=== PATIENT | male | born 1980 | race Hispanic/Latino ===

== ENCOUNTER 2023-12-17 08:36 | Inpatient (IN) | payer OTHER ==
[~2023-12-17] VITALS: Ht 160 cm; Wt 79.8 kg
[2023-12-17] MEDS ORDERED: IPRATROPIUM/ALBUTEROL SULFATE 3 ML SOLUTION IH PRN (09:00)
[2023-12-17] MEDS ORDERED: CLONIDINE HCL 0.1 MG TABLET PO PRN (09:00)
[2023-12-17] MEDS ORDERED: POTASSIUM CHLORIDE 20MEQ/100ML 100 ML IV PRN (09:00)
[2023-12-17] MEDS ORDERED: NITROGLYCERIN 0.4 MG SL TAB SL PRN ×2 (09:00→11:30)
[2023-12-17] MEDS ORDERED: DiphenhydrAMINE HCL 25 MG/10 ML ELIXIR UDCUP PO PRN (09:00)
[2023-12-17] MEDS ORDERED: ACETAMINOPHEN 325 MG TAB PO PRN ×4 (09:00→11:30)
[2023-12-17 09:28] LABS: BASOPHILS # (AUTO) 0.05 K/uL (0.00-0.20); BASOPHILS % (AUTO) 0.6 % (0.0-5.0); EOSINOPHILS % (AUTO) 1.2 % (0.0-8.0); HEMATOCRIT 41.8 % (42-54); IMMATURE GRANULOCYTE ABSOLUTE 0.03 K/uL (0-1); LYMPHOCYTES # (AUTO) 2.6 K/uL (1.0-4.8); MEAN CORPUSCULAR HEMOGLOBIN 29.3 pg (27.0-33.0); MEAN CORPUSCULAR HGB CONC 34.4 g/dL (32.0-36.0); MONOCYTES # (AUTO) 0.6 K/uL (0.1-1.0); MONOCYTES % (AUTO) 7.4 % (3.0-13.0); NEUTROPHILS # (AUTO) 4.7 K/uL (1.8-7.7); NEUTROPHILS % (AUTO) 58.4 % (40.0-77.0); PLATELET COUNT (AUTO) 205 K/uL (130-400); RED BLOOD CELL COUNT(AUTO) 4.92 MIL/uL (4.50-6.20); RED CELL DISTRIBUTION WIDTH 11.9 % (11.0-15.5); WHITE BLOOD COUNT (AUTO) 8.1 K/uL (4.8-10.8)
[2023-12-17 09:41] LABS: ALBUMIN 3.3 g/dL (3.5-5.0); BILIRUBIN,TOTAL 0.3 mg/dL (0.2-1.0); CREATININE 0.8 mg/dL (0.5-1.3); POTASSIUM 4.3 mmol/L (3.5-5.1)
[2023-12-17] MEDS: METOPROLOL SUCCINATE 25 MG TAB.SR.24H PO SCH (09:47)
[2023-12-17] MEDS: ASPIRIN 81 MG EC TAB PO SCH (09:47)
[2023-12-17] MEDS: LISINOPRIL 20 MG TABLET PO SCH (09:47)
[2023-12-17] MEDS: CLOPIDOGREL 75MG TAB PO SCH (09:47)
[2023-12-17] MEDS: TICAGRELOR 90 MG TABLET PO SCH ×2 (10:07→19:57)
[2023-12-17] MEDS: HEPARIN 5,000 UNIT VIAL IV PRN (10:18)
[2023-12-17] MEDS: HEPARIN 25,000 UNITS/250ML D5W 250 ML IV SCH (10:20)
[2023-12-17] MEDS ORDERED: LACTULOSE 20 GM/30 ML UDCUP PO PRN (11:30)
[2023-12-17] MEDS ORDERED: ONDANSETRON 4MG INJ IV PRN (11:30)
[2023-12-17] MEDS ORDERED: DIPHENHYDRAMINE HCL 25 MG CAPSULE PO PRN (11:30)
[2023-12-17] MEDS ORDERED: DEXTROSE 50%-WATER 50 ML DISP.SYRIN IV PRN (11:30)
[2023-12-17] MEDS ORDERED: GUAIFENESIN-DM 200/20 MG 10 ML PO PRN (11:30)
[2023-12-17] MEDS ORDERED: HYDRALAZINE 20MG/ML VIAL IV PRN (11:30)
[2023-12-17] MEDS ORDERED: ZOLPIDEM TARTRATE 5 MG TAB PO PRN (11:30)
[2023-12-17] MEDS ORDERED: GLUCAGON 1MG KIT 1 MG ML IM PRN (11:30)
[2023-12-17] MEDS ORDERED: KETOROLAC 15MG/ML VIAL (15MG/ML) IV PRN (11:30)
[2023-12-17] MEDS ORDERED: FAMOTIDINE 20MG VIAL IV PRN (11:30)
[2023-12-17] MEDS ORDERED: MAG/ALUM/SIMETH 30 ML UDCUP PO PRN (11:30)
[2023-12-17] MEDS ORDERED: POTASSIUM CHLORIDE 10% ELIXIR 20 MEQ/15 ML UDCUP PO PRN (11:30)
[2023-12-17] MEDS: INSULIN HUMULIN R 100 UNIT/ML 3ML SQ SCH (12:51)
[2023-12-17] MEDS ORDERED: NITROGLYCERIN 1GM OINT 1 INCH/1GM TD PRN (14:30)
[2023-12-17 14:44] LABS: APPEARANCE,URINE CLEAR (CLEAR); BILIRUBIN,URINE NEGATIVE (NEGATIVE); COLOR,URINE LIGHT-YELLOW (YELLOW); GLUCOSE, URINE (UA) >=1000 mg/dL (NEGATIVE); KETONES,URINE 5 mg/dL (NEGATIVE); LEUKOCYTE ESTERASE ,URINE NEGATIVE Leu/uL (NEGATIVE); NITRATE,URINE NEGATIVE (NEGATIVE); OCCULT BLOOD,URINE MODERATE (NEGATIVE); PH,URINE 5.5 (5.0-8.0); PROTEIN,URINE 100 mg/dL (NEGATIVE); UROBILINOGEN,URINE 0.2 mg/dL (0.2-1.0); WBC,URINE 0-1 /HPF (0-1)
[2023-12-17 16:40] LABS: INR <= 0.93 (0.85-1.15); PROTHROMBIN TIME 10.6 SEC (9.6-11.6)
[2023-12-17 16:41] LABS: PARTIAL THROMBOPLASTIN TIME 41.4 SEC (26.3-35.5)
[2023-12-17 18:27] VITALS: BP 144/71; PULSE 72; RESP 16
[2023-12-17 18:33] VITALS: O2SAT 98
[2023-12-17 18:53] VITALS: PULSE 74; RESP 17; O2SAT 100
[2023-12-17] MEDS ORDERED: ASPI-1443 PO (19:57)
[2023-12-17] MEDS ORDERED: CLOP75TA32 PO (19:57)
[2023-12-17] MEDS: FAMOTIDINE 20MG VIAL IV SCH (19:57)
[2023-12-17] MEDS ORDERED: ATOR-2 PO (19:57)
[2023-12-17] MEDS ORDERED: LOSA50TA64 PO (19:57)
[2023-12-17] MEDS ORDERED: METO-408 PO (19:57)
[2023-12-17] MEDS: ATORVASTATIN 40 MG TABLET PO SCH (19:58)
[2023-12-17 20:08] VITALS: BP 93/64; PULSE 75; RESP 20
[2023-12-17 22:00] VITALS: O2SAT 99
[2023-12-17 23:35] VITALS: BP 108/64; PULSE 68; RESP 20
[2023-12-18] VITALS (14 sets, daily range): BP systolic 106–126; BP diastolic 61–83; PULSE 61–91; RESP 2–20; O2SAT 96–99
[2023-12-18 03:58] LABS: BASOPHILS # (AUTO) 0.08 K/uL (0.00-0.20); BASOPHILS % (AUTO) 0.9 % (0.0-5.0); EOSINOPHILS # (AUTO) 0.21 K/uL (0.00-0.70); EOSINOPHILS % (AUTO) 2.3 % (0.0-8.0); HEMATOCRIT 38.2 % (42-54); IMMATURE GRANULOCYTE ABSOLUTE 0.03 K/uL (0-1); LYMPHOCYTES # (AUTO) 3.7 K/uL (1.0-4.8); MEAN CORPUSCULAR HEMOGLOBIN 29.6 pg (27.0-33.0); MEAN CORPUSCULAR HGB CONC 34.6 g/dL (32.0-36.0); MEAN CORPUSCULAR VOLUME 85.7 fL (79-99); MONOCYTES # (AUTO) 0.6 K/uL (0.1-1.0); MONOCYTES % (AUTO) 6.9 % (3.0-13.0); NEUTROPHILS # (AUTO) 4.3 K/uL (1.8-7.7); NEUTROPHILS % (AUTO) 48.6 % (40.0-77.0); PLATELET COUNT (AUTO) 183 K/uL (130-400); RED BLOOD CELL COUNT(AUTO) 4.46 MIL/uL (4.50-6.20); RED CELL DISTRIBUTION WIDTH 11.9 % (11.0-15.5)
[2023-12-18 04:13] LABS: INR <= 0.93 (0.85-1.15); PROTHROMBIN TIME 10.9 SEC (9.6-11.6)
[2023-12-18 04:14] LABS: PARTIAL THROMBOPLASTIN TIME 77.3 SEC (26.3-35.5)
[2023-12-18 04:19] LABS: ALBUMIN 2.7 g/dL (3.5-5.0); BILIRUBIN,DIRECT 0.1 mg/dL (0.0-0.3); BILIRUBIN,TOTAL 0.3 mg/dL (0.2-1.0); CREATININE 0.9 mg/dL (0.5-1.3); POTASSIUM 3.5 mmol/L (3.5-5.1); TOTAL PROTEIN, SERUM 5.8 g/dL (6.0-8.3)
[2023-12-18 08:07] LABS: AMPHET/METH SCREEN,URINE NEGATIVE (NEGATIVE); BARBITURATE SCREEN, URINE NEGATIVE (NEGATIVE); BENZODIAZEPINES SCREEN,URINE NEGATIVE (NEGATIVE); CANNABINOID SCREEN,URINE NEGATIVE (NEGATIVE); COCAINE SCREEN,URINE NEGATIVE (NEGATIVE); OPIATE SCREEN,URINE NEGATIVE (NEGATIVE); PHENCYCLIDINE SCREEN,URINE NEGATIVE (NEGATIVE)
[2023-12-18] MEDS: POTASSIUM CHLORIDE 10MEQ/100ML 100 ML IV PRN (08:25)
[2023-12-18] MEDS ORDERED: BIVALIRUDIN 250 MG/VIAL IV ONE (14:08)
[2023-12-18] MEDS ORDERED: LIDOCAINE HCL 400MG/20ML VIAL ONE (14:08)
[2023-12-18] MEDS ORDERED: NITROGLYCERIN 50MG VIAL ONE (14:09)
[2023-12-18] MEDS ORDERED: FENTANYL CITRATE PF 50 MCG/1 ML 2ML VIAL ONE (14:09)
[2023-12-18] MEDS ORDERED: MIDAZOLAM HCL 1 MG/ML 2ML VIAL ONE (14:09)
[2023-12-18] MEDS ORDERED: IOHEXOL-350 75 ML VIAL IV ONE (14:11)
[2023-12-18] MEDS ORDERED: SODIUM BICARB 50MEQ 50ML VIAL 50 ML ONE (14:17)
[2023-12-18] MEDS: FUROSEMIDE 20MG VIAL IV ONE (16:13)
[2023-12-18 20:40] LABS: BASOPHILS # (AUTO) 0.07 K/uL (0.00-0.20); BASOPHILS % (AUTO) 0.7 % (0.0-5.0); EOSINOPHILS # (AUTO) 0.15 K/uL (0.00-0.70); EOSINOPHILS % (AUTO) 1.6 % (0.0-8.0); HEMATOCRIT 40.8 % (42-54); IMMATURE GRANULOCYTE ABSOLUTE 0.03 K/uL (0-1); LYMPHOCYTES # (AUTO) 3.1 K/uL (1.0-4.8); LYMPHOCYTES % (AUTO) 31.8 % (21.0-51.0); MEAN CORPUSCULAR HEMOGLOBIN 29.7 pg (27.0-33.0); MEAN CORPUSCULAR HGB CONC 33.6 g/dL (32.0-36.0); MEAN CORPUSCULAR VOLUME 88.5 fL (79-99); MONOCYTES # (AUTO) 0.8 K/uL (0.1-1.0); MONOCYTES % (AUTO) 7.8 % (3.0-13.0); NEUTROPHILS # (AUTO) 5.6 K/uL (1.8-7.7); NEUTROPHILS % (AUTO) 57.8 % (40.0-77.0); PLATELET COUNT (AUTO) 204 K/uL (130-400); RED BLOOD CELL COUNT(AUTO) 4.61 MIL/uL (4.50-6.20); WHITE BLOOD COUNT (AUTO) 9.7 K/uL (4.8-10.8)
[2023-12-18] MEDS: HEPARIN 25,000 UNITS/250ML D5W 250 ML IV SCH (21:35)
[2023-12-19] VITALS (11 sets, daily range): BP systolic 96–137; BP diastolic 52–87; PULSE 64–80; RESP 18–21; O2SAT 98–99
[2023-12-19 04:01] LABS: BASOPHILS # (AUTO) 0.07 K/uL (0.00-0.20); BASOPHILS % (AUTO) 0.8 % (0.0-5.0); EOSINOPHILS # (AUTO) 0.15 K/uL (0.00-0.70); EOSINOPHILS % (AUTO) 1.7 % (0.0-8.0); IMMATURE GRANULOCYTE ABSOLUTE 0.03 K/uL (0-1); LYMPHOCYTES # (AUTO) 3.5 K/uL (1.0-4.8); LYMPHOCYTES % (AUTO) 39.5 % (21.0-51.0); MEAN CORPUSCULAR HEMOGLOBIN 29.2 pg (27.0-33.0); MEAN CORPUSCULAR HGB CONC 34.2 g/dL (32.0-36.0); MEAN CORPUSCULAR VOLUME 85.4 fL (79-99); MONOCYTES # (AUTO) 0.5 K/uL (0.1-1.0); MONOCYTES % (AUTO) 6.1 % (3.0-13.0); NEUTROPHILS # (AUTO) 4.6 K/uL (1.8-7.7); NEUTROPHILS % (AUTO) 51.6 % (40.0-77.0); PLATELET COUNT (AUTO) 198 K/uL (130-400); RED BLOOD CELL COUNT(AUTO) 4.45 MIL/uL (4.50-6.20); RED CELL DISTRIBUTION WIDTH 11.9 % (11.0-15.5); WHITE BLOOD COUNT (AUTO) 8.8 K/uL (4.8-10.8)
[2023-12-19 04:22] LABS: ALBUMIN 2.6 g/dL (3.5-5.0); BILIRUBIN,TOTAL 0.2 mg/dL (0.2-1.0); MAGNESIUM 1.8 mg/dL (1.80-2.40); TOTAL PROTEIN, SERUM 5.8 g/dL (6.0-8.3)
[2023-12-19] MEDS: MAGNESIUM 2GM PREMIX 50ML 50 ML IV PRN (09:00)
[2023-12-19] MEDS: ACETAMINOPHEN 325 MG TAB PO PRN (09:03)
[2023-12-20] VITALS (9 sets, daily range): BP systolic 103–144; BP diastolic 59–87; PULSE 56–74; RESP 18–21; O2SAT 98–99
[2023-12-20 06:33] LABS: BASOPHILS # (AUTO) 0.05 K/uL (0.00-0.20); BASOPHILS % (AUTO) 0.7 % (0.0-5.0); EOSINOPHILS # (AUTO) 0.12 K/uL (0.00-0.70); EOSINOPHILS % (AUTO) 1.6 % (0.0-8.0); HEMATOCRIT 36.8 % (42-54); IMMATURE GRANULOCYTE ABSOLUTE 0.02 K/uL (0-1); LYMPHOCYTES # (AUTO) 2.8 K/uL (1.0-4.8); LYMPHOCYTES % (AUTO) 38.2 % (21.0-51.0); MEAN CORPUSCULAR HEMOGLOBIN 29.5 pg (27.0-33.0); MEAN CORPUSCULAR HGB CONC 34.8 g/dL (32.0-36.0); MEAN CORPUSCULAR VOLUME 84.8 fL (79-99); MONOCYTES # (AUTO) 0.4 K/uL (0.1-1.0); NEUTROPHILS # (AUTO) 3.9 K/uL (1.8-7.7); NEUTROPHILS % (AUTO) 53.2 % (40.0-77.0); PLATELET COUNT (AUTO) 181 K/uL (130-400); RED BLOOD CELL COUNT(AUTO) 4.34 MIL/uL (4.50-6.20); WHITE BLOOD COUNT (AUTO) 7.4 K/uL (4.8-10.8)
[2023-12-20 06:44] LABS: INR <= 0.93 (0.85-1.15)
[2023-12-20 06:45] LABS: PARTIAL THROMBOPLASTIN TIME 56.8 SEC (26.3-35.5)
[2023-12-20 07:20] LABS: ALBUMIN 2.7 g/dL (3.5-5.0); BILIRUBIN,TOTAL 0.2 mg/dL (0.2-1.0); CREATININE 0.8 mg/dL (0.5-1.3); MAGNESIUM 1.7 mg/dL (1.80-2.40); POTASSIUM 4.1 mmol/L (3.5-5.1); TOTAL PROTEIN, SERUM 5.8 g/dL (6.0-8.3)
[2023-12-20] MEDS: MAGNESIUM 2GM PREMIX 50ML 50 ML IV SCH (10:27)
[2023-12-20] MEDS: FUROSEMIDE 20MG VIAL IV ONE (14:38)
[2023-12-20] MEDS: FUROSEMIDE 20MG VIAL IV SCH (20:33)
[2023-12-21] VITALS (8 sets, daily range): BP systolic 113–131; BP diastolic 71–82; PULSE 62–72; RESP 17–20; O2SAT 98–99
[2023-12-21 06:35] LABS: BASOPHILS # (AUTO) 0.05 K/uL (0.00-0.20); BASOPHILS % (AUTO) 0.6 % (0.0-5.0); EOSINOPHILS # (AUTO) 0.18 K/uL (0.00-0.70); EOSINOPHILS % (AUTO) 2.3 % (0.0-8.0); HEMATOCRIT 39.8 % (42-54); IMMATURE GRANULOCYTE ABSOLUTE 0.05 K/uL (0-1); LYMPHOCYTES # (AUTO) 2.8 K/uL (1.0-4.8); LYMPHOCYTES % (AUTO) 36.5 % (21.0-51.0); MEAN CORPUSCULAR HEMOGLOBIN 29.4 pg (27.0-33.0); MEAN CORPUSCULAR HGB CONC 34.4 g/dL (32.0-36.0); MEAN CORPUSCULAR VOLUME 85.4 fL (79-99); MONOCYTES # (AUTO) 0.5 K/uL (0.1-1.0); NEUTROPHILS # (AUTO) 4.1 K/uL (1.8-7.7); PLATELET COUNT (AUTO) 180 K/uL (130-400); RED BLOOD CELL COUNT(AUTO) 4.66 MIL/uL (4.50-6.20); WHITE BLOOD COUNT (AUTO) 7.8 K/uL (4.8-10.8)
[2023-12-21 06:52] LABS: INR 0.96 (0.85-1.15); PROTHROMBIN TIME 11.4 SEC (9.6-11.6)
[2023-12-21 06:54] LABS: PARTIAL THROMBOPLASTIN TIME 80.6 SEC (26.3-35.5)
[2023-12-21 07:20] LABS: ALBUMIN 2.8 g/dL (3.5-5.0); BILIRUBIN,TOTAL 0.4 mg/dL (0.2-1.0); CREATININE 0.7 mg/dL (0.5-1.3); MAGNESIUM 1.4 mg/dL (1.80-2.40); POTASSIUM 3.7 mmol/L (3.5-5.1); TOTAL PROTEIN, SERUM 6.1 g/dL (6.0-8.3)
[2023-12-21] MEDS: POTASSIUM CHLORIDE 10MEQ SR TAB PO PRN (08:58)
[2023-12-21 12:28] LABS: INR <= 0.93 (0.85-1.15)
[2023-12-21 12:29] LABS: PARTIAL THROMBOPLASTIN TIME 62.4 SEC (26.3-35.5)
[2023-12-22 03:30] LABS: BASOPHILS # (AUTO) 0.06 K/uL (0.00-0.20); BASOPHILS % (AUTO) 0.7 % (0.0-5.0); EOSINOPHILS # (AUTO) 0.22 K/uL (0.00-0.70); EOSINOPHILS % (AUTO) 2.7 % (0.0-8.0); HEMATOCRIT 38.6 % (42-54); IMMATURE GRANULOCYTE ABSOLUTE 0.02 K/uL (0-1); LYMPHOCYTES # (AUTO) 2.9 K/uL (1.0-4.8); LYMPHOCYTES % (AUTO) 35.5 % (21.0-51.0); MEAN CORPUSCULAR HEMOGLOBIN 29.1 pg (27.0-33.0); MEAN CORPUSCULAR HGB CONC 34.7 g/dL (32.0-36.0); MEAN CORPUSCULAR VOLUME 83.9 fL (79-99); MONOCYTES # (AUTO) 0.6 K/uL (0.1-1.0); NEUTROPHILS # (AUTO) 4.4 K/uL (1.8-7.7); NEUTROPHILS % (AUTO) 53.9 % (40.0-77.0); PLATELET COUNT (AUTO) 178 K/uL (130-400); RED CELL DISTRIBUTION WIDTH 11.9 % (11.0-15.5); WHITE BLOOD COUNT (AUTO) 8.2 K/uL (4.8-10.8)
[2023-12-22 03:40] LABS: ALBUMIN 2.7 g/dL (3.5-5.0); BILIRUBIN,TOTAL 0.2 mg/dL (0.2-1.0); CREATININE 0.7 mg/dL (0.5-1.3); MAGNESIUM 1.5 mg/dL (1.80-2.40); POTASSIUM 3.5 mmol/L (3.5-5.1); TOTAL PROTEIN, SERUM 5.9 g/dL (6.0-8.3)
[2023-12-22 03:46] LABS: INR <= 0.93 (0.85-1.15)
[2023-12-22 03:48] LABS: PARTIAL THROMBOPLASTIN TIME 29.3 SEC (26.3-35.5)
[2023-12-22 04:27] VITALS: BP 111/71; PULSE 63; RESP 20
[2023-12-22 08:04] VITALS: BP 124/80; PULSE 68; RESP 16
[2023-12-22 10:18] LABS: INR 0.94 (0.85-1.15); PROTHROMBIN TIME 11.1 SEC (9.6-11.6)
[2023-12-22 10:19] LABS: PARTIAL THROMBOPLASTIN TIME 30.4 SEC (26.3-35.5)
[2023-12-22 11:43] VITALS: BP 121/73; PULSE 57; RESP 16
[2023-12-22] MEDS: INSULIN HUMULIN R 100 UNIT/ML 3ML SQ SCH (11:59)
[2023-12-22] MEDS ORDERED: MAGNESIUM 2GM PREMIX 50ML 50 ML IV SCH (14:00)
[2023-12-22 15:59] VITALS: BP 124/68; PULSE 65; RESP 16
[2023-12-22 19:53] VITALS: BP 117/75; PULSE 68; RESP 18
[2023-12-22 21:23] VITALS: O2SAT 99
[2023-12-23] VITALS (8 sets, daily range): BP systolic 101–138; BP diastolic 59–87; PULSE 58–69; RESP 18–20; O2SAT 97–98
[2023-12-23 01:12] LABS: HEMATOCRIT 39.1 % (42-54); MEAN CORPUSCULAR HEMOGLOBIN 29.5 pg (27.0-33.0); MEAN CORPUSCULAR HGB CONC 35.3 g/dL (32.0-36.0); MEAN CORPUSCULAR VOLUME 83.5 fL (79-99); RED BLOOD CELL COUNT(AUTO) 4.68 MIL/uL (4.50-6.20); RED CELL DISTRIBUTION WIDTH 12.3 % (11.0-15.5); WHITE BLOOD COUNT (AUTO) 9.4 K/uL (4.8-10.8)
[2023-12-23 01:35] LABS: ALBUMIN 2.9 g/dL (3.5-5.0); BILIRUBIN,TOTAL 0.3 mg/dL (0.2-1.0); CREATININE 0.9 mg/dL (0.5-1.3); MAGNESIUM 1.5 mg/dL (1.80-2.40); POTASSIUM 3.5 mmol/L (3.5-5.1); TOTAL PROTEIN, SERUM 6.2 g/dL (6.0-8.3)
[2023-12-23] MEDS ORDERED: PHARMACY COMMUNICATION MISC SCH (11:30)
[2023-12-24] VITALS (7 sets, daily range): BP systolic 96–143; BP diastolic 66–86; PULSE 64–71; RESP 14–20; O2SAT 98
[2023-12-24 04:14] LABS: HEMATOCRIT 40.7 % (42-54); MEAN CORPUSCULAR HEMOGLOBIN 29.9 pg (27.0-33.0); MEAN CORPUSCULAR HGB CONC 34.9 g/dL (32.0-36.0); MEAN CORPUSCULAR VOLUME 85.7 fL (79-99); RED BLOOD CELL COUNT(AUTO) 4.75 MIL/uL (4.50-6.20); RED CELL DISTRIBUTION WIDTH 12.1 % (11.0-15.5); WHITE BLOOD COUNT (AUTO) 8.3 K/uL (4.8-10.8)
[2023-12-24 04:29] LABS: ALBUMIN 2.9 g/dL (3.5-5.0); BILIRUBIN,TOTAL 0.3 mg/dL (0.2-1.0); CREATININE 0.8 mg/dL (0.5-1.3); MAGNESIUM 1.7 mg/dL (1.80-2.40); POTASSIUM 3.8 mmol/L (3.5-5.1); TOTAL PROTEIN, SERUM 6.4 g/dL (6.0-8.3)
[2023-12-24 07:48] LABS: INR 0.95 (0.85-1.15); PROTHROMBIN TIME 11.3 SEC (9.6-11.6)
[2023-12-24 07:50] LABS: PARTIAL THROMBOPLASTIN TIME 69.4 SEC (26.3-35.5)
[2023-12-24 12:58] LABS: INR <= 0.93 (0.85-1.15)
[2023-12-24 17:41] LABS: INR <= 0.93 (0.85-1.15); PROTHROMBIN TIME 10.9 SEC (9.6-11.6)
[2023-12-24 17:42] LABS: PARTIAL THROMBOPLASTIN TIME 56.9 SEC (26.3-35.5)
[2023-12-25] VITALS (9 sets, daily range): BP systolic 91–117; BP diastolic 52–70; PULSE 64–71; RESP 18–20; O2SAT 99
[2023-12-25 03:56] LABS: BASOPHILS # (AUTO) 0.06 K/uL (0.00-0.20); BASOPHILS % (AUTO) 0.7 % (0.0-5.0); EOSINOPHILS # (AUTO) 0.23 K/uL (0.00-0.70); EOSINOPHILS % (AUTO) 2.7 % (0.0-8.0); HEMATOCRIT 38.8 % (42-54); IMMATURE GRANULOCYTE ABSOLUTE 0.05 K/uL (0-1); LYMPHOCYTES # (AUTO) 3.3 K/uL (1.0-4.8); LYMPHOCYTES % (AUTO) 38.4 % (21.0-51.0); MEAN CORPUSCULAR HGB CONC 34.3 g/dL (32.0-36.0); MEAN CORPUSCULAR VOLUME 84.5 fL (79-99); MONOCYTES # (AUTO) 0.8 K/uL (0.1-1.0); MONOCYTES % (AUTO) 8.8 % (3.0-13.0); NEUTROPHILS # (AUTO) 4.2 K/uL (1.8-7.7); NEUTROPHILS % (AUTO) 48.8 % (40.0-77.0); PLATELET COUNT (AUTO) 189 K/uL (130-400); RED BLOOD CELL COUNT(AUTO) 4.59 MIL/uL (4.50-6.20); RED CELL DISTRIBUTION WIDTH 12.2 % (11.0-15.5); WHITE BLOOD COUNT (AUTO) 8.6 K/uL (4.8-10.8)
[2023-12-25] MEDS ORDERED: EPHEDRINE SULFATE 50 MG/ML AMPULE ONE (11:00)
[2023-12-25] MEDS ORDERED: PROPOFOL 10 MG/ML 20ML VIAL IV ONE (11:00)
[2023-12-25] MEDS ORDERED: LIDOCAINE PF 100MG/5ML (2%) SYRINGE 5ML ONE (11:00)
[2023-12-25 13:34] LABS: BILIRUBIN,TOTAL 0.3 mg/dL (0.2-1.0); CREATININE 0.7 mg/dL (0.5-1.3); MAGNESIUM 1.5 mg/dL (1.80-2.40); POTASSIUM 3.9 mmol/L (3.5-5.1); TOTAL PROTEIN, SERUM 6.7 g/dL (6.0-8.3)
[2023-12-25 16:56] LABS: INR <= 0.93 (0.85-1.15); PROTHROMBIN TIME 10.8 SEC (9.6-11.6)
[2023-12-25 16:57] LABS: PARTIAL THROMBOPLASTIN TIME 63.6 SEC (26.3-35.5)
[2023-12-25] MEDS: INSULIN HUMULIN R 100 UNIT/ML 3ML SQ SCH (18:14)
[2023-12-25] MEDS: INSULIN GLARGINE 100 UNITS/ML 10 ML VIAL SQ SCH (20:26)
[2023-12-26] VITALS (7 sets, daily range): BP systolic 101–114; BP diastolic 48–71; PULSE 62–69; RESP 18; O2SAT 97
[2023-12-26] MEDS: FUROSEMIDE 40 MG TABLET PO SCH (08:34)
[2023-12-26] MEDS ORDERED: MAGNESIUM 2GM PREMIX 50ML 50 ML IV SCH (10:30)
[2023-12-26] MEDS: INSULIN GLARGINE 100 UNITS/ML 10 ML VIAL SQ SCH (21:22)
[2023-12-26 23:35] LABS: INR 1.04 (0.85-1.15); PARTIAL THROMBOPLASTIN TIME 49.5 SEC (26.3-35.5)
[2023-12-27] VITALS (8 sets, daily range): BP systolic 102–137; BP diastolic 60–74; PULSE 61–67; RESP 18–20; O2SAT 97–98
[2023-12-27 05:03] LABS: HEMATOCRIT 40.7 % (42-54); MEAN CORPUSCULAR HEMOGLOBIN 29.4 pg (27.0-33.0); MEAN CORPUSCULAR HGB CONC 34.9 g/dL (32.0-36.0); MEAN CORPUSCULAR VOLUME 84.3 fL (79-99); RED BLOOD CELL COUNT(AUTO) 4.83 MIL/uL (4.50-6.20); RED CELL DISTRIBUTION WIDTH 12.4 % (11.0-15.5); WHITE BLOOD COUNT (AUTO) 8.9 K/uL (4.8-10.8)
[2023-12-27 05:41] LABS: BILIRUBIN,TOTAL 0.4 mg/dL (0.2-1.0); CREATININE 0.8 mg/dL (0.5-1.3); MAGNESIUM 1.5 mg/dL (1.80-2.40); POTASSIUM 3.6 mmol/L (3.5-5.1); TOTAL PROTEIN, SERUM 6.7 g/dL (6.0-8.3)
[2023-12-27 12:02] LABS: CHOLESTEROL 136 mg/dL (<200); HDL CHOLESTEROL 58 mg/dL (29-71); LDL DIRECT 75 mg/dL (0-99); TRIGLYCERIDES 96 mg/dL (30-200)
[2023-12-27] MEDS: MAGNESIUM 2GM PREMIX 50ML 50 ML IV SCH (21:57)
[2023-12-28] VITALS (8 sets, daily range): BP systolic 105–140; BP diastolic 63–79; PULSE 55–73; RESP 16–18; O2SAT 96–98
[2023-12-28 05:55] LABS: BILIRUBIN,TOTAL 0.2 mg/dL (0.2-1.0); MAGNESIUM 1.8 mg/dL (1.80-2.40); POTASSIUM 3.7 mmol/L (3.5-5.1); TOTAL PROTEIN, SERUM 6.5 g/dL (6.0-8.3)
[2023-12-28] MEDS: CEFAZOLIN SODIUM 1 GM VIAL IVPB SCH (20:00)
[2023-12-29] VITALS (34 sets, daily range): BP systolic 97–203; BP diastolic 20–88; PULSE 67–113; RESP 8–19; TEMP 100–101.3; O2SAT 98–100
[2023-12-29 05:23] LABS: HEMATOCRIT 42.7 % (42-54); MEAN CORPUSCULAR HEMOGLOBIN 29.5 pg (27.0-33.0); MEAN CORPUSCULAR HGB CONC 34.2 g/dL (32.0-36.0); MEAN CORPUSCULAR VOLUME 86.3 fL (79-99); RED BLOOD CELL COUNT(AUTO) 4.95 MIL/uL (4.50-6.20); RED CELL DISTRIBUTION WIDTH 12.5 % (11.0-15.5); WHITE BLOOD COUNT (AUTO) 8.3 K/uL (4.8-10.8)
[2023-12-29 05:26] LABS: ALBUMIN 3.1 g/dL (3.5-5.0); BILIRUBIN,TOTAL 0.4 mg/dL (0.2-1.0); CREATININE 0.7 mg/dL (0.5-1.3); TOTAL PROTEIN, SERUM 6.7 g/dL (6.0-8.3)
[2023-12-29 05:27] LABS: INR 1.04 (0.85-1.15); PARTIAL THROMBOPLASTIN TIME 56.4 SEC (26.3-35.5)
[2023-12-29 06:27] LABS: HEMOGLOBIN A1C 11.4 % (4.0-6.0)
[2023-12-29] MEDS ORDERED: NOREPINEPHRIN 8MG/250ML NS 250 ML IV PRN ×2 (07:30→13:30)
[2023-12-29] MEDS ORDERED: AMINOCAPROIC ACID 15,000 MG in 0.9% NACL 500ML IV PRN (07:30)
[2023-12-29] MEDS ORDERED: EPINEPHRINE 10 MG in 0.9% NACL 250ML IV PRN ×2 (07:30→12:30)
[2023-12-29] MEDS ORDERED: NITROGLYCERIN 50MG/D5W 250ML 1 BOT ONE (08:20)
[2023-12-29] MEDS ORDERED: CEFAZOLIN SODIUM 1 GM VIAL ONE (09:13)
[2023-12-29] MEDS: CEFAZOLIN SODIUM 2 GM VIAL ONE (09:15)
[2023-12-29] MEDS: 0.9%NACL 1000ML 1,000 ML IV ONE (11:28)
[2023-12-29] MEDS ORDERED: EPINEPHRINE PF 1MG (1:1,000) 1 MG/ML AMP ONE (11:36)
[2023-12-29] MEDS ORDERED: NOREPINEPHRINE BITARTRATE 1 MG/1 ML ML IV ONE (11:36)
[2023-12-29] MEDS ORDERED: FENTANYL CITRATE PF 50 MCG/1 ML 20ML VIAL IJ ONE (11:36)
[2023-12-29] MEDS ORDERED: LIDOCAINE PF 100MG/5ML (2%) SYRINGE 5ML ONE ×2 (11:36→13:49)
[2023-12-29] MEDS ORDERED: SODIUM BICARB 50MEQ 50ML VIAL 200 ML ONE (11:36)
[2023-12-29] MEDS ORDERED: HEPARIN 10,000 UNIT/10ML (1,000 UNIT/ML) VIAL ONE ×3 (11:36→13:49)
[2023-12-29] MEDS ORDERED: PROPOFOL 10 MG/ML 20ML VIAL IV ONE (11:36)
[2023-12-29] MEDS ORDERED: PROTAMINE SULFATE 10 MG/ML 25ML VIAL IV ONE (11:36)
[2023-12-29] MEDS ORDERED: MIDAZOLAM HCL 1 MG/ML 2ML VIAL ONE (11:36)
[2023-12-29] MEDS ORDERED: ROCURONIUM BROMIDE 10MG/1ML 5ML VL ONE (11:37)
[2023-12-29 12:18] LABS: ABG BASE EXCESS -6.5 mmol/L (-2.0-3.0); ABG HCO3 19.4 mmol/L (21.0-28.0); ABG OXYGEN SATURATION 99.7 % (95.0-99.0); ABG PCO2 40 mmHg (35-48); ABG PH 7.305 (7.35-7.450); CARBON MONOXIDE 0.2; DEVICE COMMENT 1; HHb 0.3; PO2, ARTERIAL BG 379.3 mmHg (83.0-108.0)
[2023-12-29] MEDS ORDERED: POTASSIUM CHLORIDE 20MEQ/100ML 100 ML IV ONE ×2 (12:24→15:18)
[2023-12-29] MEDS ORDERED: DEXTROSE 50%-WATER 50 ML DISP.SYRIN IV PRN (12:30)
[2023-12-29] MEDS ORDERED: 0.9% NACL 500ML IV.SOLN 500 ML IV SCH (12:30)
[2023-12-29] MEDS ORDERED: PROPOFOL 1000 MG/100 ML 100 ML IV PRN (12:30)
[2023-12-29] MEDS ORDERED: 0.9%NACL 10ML VIAL IVP PRN (12:30)
[2023-12-29] MEDS ORDERED: TRAMADOL HCL 50 MG TABLET PO PRN (12:30)
[2023-12-29] MEDS ORDERED: GLUCAGON 1MG KIT 1 MG ML IM PRN (12:30)
[2023-12-29] MEDS ORDERED: AMINOCAPROIC ACID 5,000MG VIAL 15,000 MG in 0.9% NACL 250ML 250 ML IV SCH (12:30)
[2023-12-29] MEDS ORDERED: NITROGLYCERIN 50MG/D5W 250ML 250 BOT IV SCH (12:30)
[2023-12-29] MEDS ORDERED: MAGNESIUM HYDROXIDE 30 ML/UDCUP PO PRN (12:30)
[2023-12-29] MEDS ORDERED: MORPHINE 2 MG SYG IV PRN (12:30)
[2023-12-29] MEDS ORDERED: ACETAMINOPHEN 650 MG SUPPOSITORY RC PRN (12:30)
[2023-12-29] MEDS ORDERED: ALBUMIN (HUMAN) 5% 250 ML IV PRN (12:30)
[2023-12-29] MEDS ORDERED: AMIODARONE 150MG VIAL ONE (12:47)
[2023-12-29] MEDS ORDERED: VASOPRESSIN 20 UNITS/ML 1ML VIAL ONE (12:48)
[2023-12-29] MEDS: CEFAZOLIN SODIUM 1 GM VIAL ONE (13:01)
[2023-12-29] MEDS: PAPAVERINE HCL 30 MG/ML 2ML VIAL ONE (13:02)
[2023-12-29 13:44] LABS: ABG BASE EXCESS -2.3 mmol/L (-2.0-3.0); ABG OXYGEN SATURATION 99.4 % (95.0-99.0); ABG PCO2 37 mmHg (35-48); ABG PH 7.396 (7.35-7.450); CARBON MONOXIDE 0.1; DEVICE COMMENT 2; HHb 0.6; PO2, ARTERIAL BG 299.8 mmHg (83.0-108.0)
[2023-12-29] MEDS ORDERED: ETOMIDATE 20MG VIAL ONE (13:49)
[2023-12-29 14:10] LABS: ABG BASE EXCESS -1.9 mmol/L (-2.0-3.0); ABG HCO3 22.4 mmol/L (21.0-28.0); ABG OXYGEN SATURATION 99.4 % (95.0-99.0); ABG PCO2 37 mmHg (35-48); ABG PH 7.403 (7.35-7.450); CARBON MONOXIDE 0.2; DEVICE COMMENT 3; HHb 0.6; PO2, ARTERIAL BG 373.1 mmHg (83.0-108.0)
[2023-12-29 15:15] LABS: ABG BASE EXCESS 1.7 mmol/L (-2.0-3.0); ABG HCO3 25.9 mmol/L (21.0-28.0); ABG PCO2 39 mmHg (35-48); ABG PH 7.441 (7.35-7.450); CARBON MONOXIDE 0.3; DEVICE COMMENT 4; PO2, ARTERIAL BG 401.8 mmHg (83.0-108.0)
[2023-12-29 15:54] LABS: ABG BASE EXCESS -1.1 mmol/L (-2.0-3.0); ABG HCO3 25.7 mmol/L (21.0-28.0); ABG OXYGEN SATURATION 98.8 % (95.0-99.0); ABG PCO2 51 mmHg (35-48); ABG PH 7.322 (7.35-7.450); CARBON MONOXIDE 0.6; DEVICE COMMENT ALINE; HHb 1.2; PO2, ARTERIAL BG 215.8 mmHg (83.0-108.0); VENT MODE, BG SIMV PS10 (ROOM AIR)
[2023-12-29] MEDS: MORPHINE 4 MG SYG IV PRN (16:01)
[2023-12-29] MEDS: SODIUM BICARB 50MEQ 50ML VIAL IV PRN (16:03)
[2023-12-29] MEDS: POTASSIUM CHLORIDE 20MEQ/100ML 100 ML IV PRN (16:04)
[2023-12-29 16:06] LABS: HEMATOCRIT 37.5 % (42-54); MEAN CORPUSCULAR HEMOGLOBIN 29.7 pg (27.0-33.0); MEAN CORPUSCULAR HGB CONC 33.9 g/dL (32.0-36.0); MEAN CORPUSCULAR VOLUME 87.8 fL (79-99); RED BLOOD CELL COUNT(AUTO) 4.27 MIL/uL (4.50-6.20); RED CELL DISTRIBUTION WIDTH 12.5 % (11.0-15.5)
[2023-12-29] MEDS: 0.9%NACL 1000ML 1,000 ML IV SCH (16:14)
[2023-12-29 16:25] LABS: CREATININE 0.9 mg/dL (0.5-1.3); MAGNESIUM 1.1 mg/dL (1.80-2.40); PHOSPHORUS 3.4 mg/dL (2.5-4.9); POTASSIUM 3.6 mmol/L (3.5-5.1)
[2023-12-29 16:41] LABS: INR 1.19 (0.85-1.15); PARTIAL THROMBOPLASTIN TIME 22.5 SEC (26.3-35.5); PROTHROMBIN TIME 12.5 SEC (9.6-11.6)
[2023-12-29] MEDS: ASPIRIN 81MG CHEW TAB NG ONE (16:55)
[2023-12-29 16:57] LABS: ABG BASE EXCESS -3.8 mmol/L (-2.0-3.0); ABG HCO3 21.4 mmol/L (21.0-28.0); ABG OXYGEN SATURATION 98.8 % (95.0-99.0); ABG PCO2 39 mmHg (35-48); ABG PH 7.352 (7.35-7.450); CARBON MONOXIDE 0.5; DEVICE COMMENT ALINE; HHb 1.2; PO2, ARTERIAL BG 241.9 mmHg (83.0-108.0); VENT MODE, BG SIMV (ROOM AIR)
[2023-12-29] MEDS: INSULIN REGULAR 100 UNIT in 0.9%NACL 100ML IV SCH (17:10)
[2023-12-29] MEDS: CALCIUM GLUC 1GM 1 GM in 0.9%NACL 50ML 50 ML IV PRN (17:11)
[2023-12-29] MEDS: MAGNESIUM 2GM PREMIX 50ML 50 ML IV PRN (17:13)
[2023-12-29 17:52] LABS: ABG HCO3 23.7 mmol/L (21.0-28.0); ABG OXYGEN SATURATION 98.2 % (95.0-99.0); ABG PCO2 39 mmHg (35-48); ABG PH 7.397 (7.35-7.450); CARBON MONOXIDE 0.7; DEVICE COMMENT ALINE; HHb 1.8; PO2, ARTERIAL BG 138.8 mmHg (83.0-108.0); VENT MODE, BG SIMV (ROOM AIR)
[2023-12-29] MEDS: CEFAZOLIN SODIUM 2 GM VIAL IVPB SCH (17:57)
[2023-12-29 19:03] LABS: ABG BASE EXCESS -1.4 mmol/L (-2.0-3.0); ABG HCO3 22.6 mmol/L (21.0-28.0); ABG OXYGEN SATURATION 98.1 % (95.0-99.0); ABG PCO2 36 mmHg (35-48); ABG PH 7.415 (7.35-7.450); CARBON MONOXIDE 0.5; HHb 1.9; PO2, ARTERIAL BG 138.6 mmHg (83.0-108.0); VENT MODE, BG SIMV PS 10 (ROOM AIR)
[2023-12-29] MEDS: FAMOTIDINE 20MG VIAL IV SCH (20:06)
[2023-12-29] MEDS: ATORVASTATIN 40 MG TABLET PO SCH (20:06)
[2023-12-29 20:10] LABS: ABG BASE EXCESS 3.3 mmol/L (-2.0-3.0); ABG HCO3 28.4 mmol/L (21.0-28.0); ABG OXYGEN SATURATION 98.4 % (95.0-99.0); ABG PCO2 45 mmHg (35-48); ABG PH 7.418 (7.35-7.450); CARBON MONOXIDE 1.1; HHb 1.6; PO2, ARTERIAL BG 140.6 mmHg (83.0-108.0); VENT MODE, BG SIMV PS 10 (ROOM AIR)
[2023-12-29] MEDS: ACETAMINOPHEN 325 MG TAB PO PRN (20:20)
[2023-12-29 21:16] LABS: ABG BASE EXCESS 4.3 mmol/L (-2.0-3.0); ABG HCO3 30.8 mmol/L (21.0-28.0); ABG OXYGEN SATURATION 97.8 % (95.0-99.0); ABG PCO2 53 mmHg (35-48); ABG PH 7.385 (7.35-7.450); CARBON MONOXIDE 0.8; HHb 2.2; PO2, ARTERIAL BG 118.9 mmHg (83.0-108.0); VENT MODE, BG CAFM (ROOM AIR)
[2023-12-29 22:03] LABS: ABG BASE EXCESS 3.5 mmol/L (-2.0-3.0); ABG HCO3 27.5 mmol/L (21.0-28.0); ABG OXYGEN SATURATION 98.3 % (95.0-99.0); ABG PCO2 40 mmHg (35-48); ABG PH 7.457 (7.35-7.450); HHb 1.7; PO2, ARTERIAL BG 132.5 mmHg (83.0-108.0); VENT MODE, BG CAFM (ROOM AIR)
[2023-12-30] VITALS (108 sets, daily range): BP systolic 92–133; BP diastolic 47–91; PULSE 74–102; RESP 12–34; TEMP 99.1–101; O2SAT 96–97
[2023-12-30] MEDS: ACETAMINOPHEN 325 MG TAB PO PRN (03:18)
[2023-12-30 03:53] LABS: HEMATOCRIT 36.5 % (42-54); MEAN CORPUSCULAR HEMOGLOBIN 29.4 pg (27.0-33.0); MEAN CORPUSCULAR VOLUME 86.5 fL (79-99); RED BLOOD CELL COUNT(AUTO) 4.22 MIL/uL (4.50-6.20); RED CELL DISTRIBUTION WIDTH 13.1 % (11.0-15.5); WHITE BLOOD COUNT (AUTO) 16.1 K/uL (4.8-10.8)
[2023-12-30 04:18] LABS: MAGNESIUM 1.9 mg/dL (1.80-2.40); PHOSPHORUS 1.6 mg/dL (2.5-4.9); POTASSIUM 4.1 mmol/L (3.5-5.1)
[2023-12-30 04:20] LABS: INR 1.13 (0.85-1.15); PARTIAL THROMBOPLASTIN TIME 24.8 SEC (26.3-35.5); PROTHROMBIN TIME 11.9 SEC (9.6-11.6)
[2023-12-30] MEDS: TRAMADOL HCL 50 MG TABLET PO PRN (05:28)
[2023-12-30] MEDS: POTASSIUM PHOS 15 mMOL+NS250ML 250 ML IV PRN (07:10)
[2023-12-30] MEDS: FUROSEMIDE 20MG VIAL IV SCH (08:53)
[2023-12-30] MEDS: ASPIRIN 81MG CHEW TAB PO SCH (08:55)
[2023-12-30] MEDS: ONDANSETRON 4MG INJ IV PRN (13:36)
[2023-12-31] VITALS (35 sets, daily range): BP systolic 91–143; BP diastolic 44–84; PULSE 75–87; RESP 11–38; TEMP 98.7–99.4; O2SAT 95–96
[2023-12-31 01:45] LABS: MAGNESIUM 1.7 mg/dL (1.80-2.40); POTASSIUM 3.7 mmol/L (3.5-5.1)
[2023-12-31 05:26] LABS: HEMATOCRIT 32.3 % (42-54); MEAN CORPUSCULAR HEMOGLOBIN 29.6 pg (27.0-33.0); MEAN CORPUSCULAR HGB CONC 33.7 g/dL (32.0-36.0); MEAN CORPUSCULAR VOLUME 87.8 fL (79-99); RED BLOOD CELL COUNT(AUTO) 3.68 MIL/uL (4.50-6.20); RED CELL DISTRIBUTION WIDTH 12.8 % (11.0-15.5); WHITE BLOOD COUNT (AUTO) 15.1 K/uL (4.8-10.8)
[2023-12-31 05:36] LABS: CREATININE 0.7 mg/dL (0.5-1.3); POTASSIUM 3.8 mmol/L (3.5-5.1)
[2023-12-31] MEDS: METOPROLOL TARTRATE 25 MG TAB PO SCH (08:39)
[2023-12-31] MEDS: FUROSEMIDE 20 MG TABLET PO SCH (08:40)
[2023-12-31] MEDS: CLOPIDOGREL 75MG TAB PO SCH (08:44)
[2023-12-31] MEDS: INSULIN HUMULIN R 100 UNIT/ML 3ML SQ SCH (11:07)
[2023-12-31] MEDS: LACTULOSE 20 GM/30 ML UDCUP PO ONE (11:11)
[2023-12-31] MEDS: DOCUSATE SODIUM 100 MG CAP PO ONE (15:11)
[2023-12-31] MEDS: ENOXAPARIN SODIUM 30 MG/0.3 ML SQ SCH (17:07)
[2023-12-31] MEDS: LACTULOSE 20 GM/30 ML UDCUP PO SCH (20:45)
[2023-12-31] MEDS: FAMOTIDINE 20MG TAB PO SCH (20:45)
[2023-12-31] MEDS: LISINOPRIL 2.5 MG TABLET PO SCH (20:45)
[2024-01-01] VITALS (8 sets, daily range): BP systolic 104–144; BP diastolic 67–85; PULSE 72–86; RESP 18; O2SAT 97–98
[2024-01-01 03:24] LABS: HEMATOCRIT 30.1 % (42-54); MEAN CORPUSCULAR HEMOGLOBIN 29.7 pg (27.0-33.0); MEAN CORPUSCULAR HGB CONC 34.6 g/dL (32.0-36.0); RED BLOOD CELL COUNT(AUTO) 3.5 MIL/uL (4.50-6.20); RED CELL DISTRIBUTION WIDTH 12.4 % (11.0-15.5); WHITE BLOOD COUNT (AUTO) 14.5 K/uL (4.8-10.8)
[2024-01-01 03:33] LABS: CREATININE 0.7 mg/dL (0.5-1.3); POTASSIUM 3.5 mmol/L (3.5-5.1)
[2024-01-01] MEDS: KCL 20 MEQ ERTAB PO ONE (04:54)
[2024-01-01] MEDS: KCL 20 MEQ ERTAB PO PRN (04:54)
[2024-01-01] MEDS ORDERED: POTASSIUM CHLORIDE 10% ELIXIR 20 MEQ/15 ML UDCUP PO PRN (05:00)
[2024-01-01] MEDS: POLYETHYLENE GLYCOL 3350 17 GM POWD.PACK PO SCH (08:59)
[2024-01-01] MEDS: METOPROLOL SUCCINATE 25 MG TAB.SR.24H PO SCH (20:50)
[2024-01-02] VITALS: BP 136/74; PULSE 80; RESP 18
[2024-01-02 04:18] LABS: HEMATOCRIT 30.3 % (42-54); MEAN CORPUSCULAR HEMOGLOBIN 29.4 pg (27.0-33.0); MEAN CORPUSCULAR HGB CONC 35.3 g/dL (32.0-36.0); MEAN CORPUSCULAR VOLUME 83.2 fL (79-99); RED BLOOD CELL COUNT(AUTO) 3.64 MIL/uL (4.50-6.20); RED CELL DISTRIBUTION WIDTH 12.2 % (11.0-15.5); WHITE BLOOD COUNT (AUTO) 9.3 K/uL (4.8-10.8)
[2024-01-02 04:26] VITALS: BP 145/88; PULSE 78; RESP 18
[2024-01-02 04:34] LABS: CREATININE 0.6 mg/dL (0.5-1.3); POTASSIUM 3.4 mmol/L (3.5-5.1)
[2024-01-02 07:02] VITALS: BP 147/77; PULSE 79; RESP 18
[2024-01-02 08:20] VITALS: O2SAT 97
[2024-01-02 11:00] VITALS: BP 140/78; PULSE 80; RESP 18
[2024-01-02] MEDS ORDERED: FURO20TA6 PO (13:52)
[2024-01-02] MEDS ORDERED: ASPI-1005 PO (13:52)
[2024-01-02] MEDS ORDERED: ATOR40TA69 PO (13:52)
[2024-01-02] MEDS ORDERED: METO25TA3 PO (13:52)
[2024-01-02] MEDS ORDERED: LISI2.5T13 PO (13:52)
[2024-01-02] MEDS ORDERED: METF-446 PO (14:20)
[2024-01-02] MEDS ORDERED: PIOG30TA70 PO (14:20)
[2024-01-02] MEDS ORDERED: GLIM4TAB36 PO (14:20)
== END 2024-01-02 16:35 | disposition home or self-care (01) | DRG 233 ==
LOC: EDH 08:36 → EDHIP 08:37 → 2DH 15:40 → 2CV 12-29 11:17 → 2BH 12-30 18:31 → 2AH 12-31 13:40
PROVIDERS: ADMIT Internal Medicine; ATTEND Internal Medicine
PROC: 4A023N7 Measurement of Cardiac Sampling and Pressure, Left Heart, Percutaneous Approach (ICD-10-PCS; principal; 2023-12-18)
PROC: B2111ZZ Fluoroscopy of Multiple Coronary Arteries using Low Osmolar Contrast (ICD-10-PCS; 2023-12-18)
PROC: B2151ZZ Fluoroscopy of Left Heart using Low Osmolar Contrast (ICD-10-PCS; 2023-12-18)
PROC: 05HM33Z Insertion of Infusion Device into Right Internal Jugular Vein, Percutaneous Approach (ICD-10-PCS; 2023-12-18)
PROC: 4A133B3 Monitoring of Arterial Pressure, Pulmonary, Percutaneous Approach (ICD-10-PCS; 2023-12-19)
PROC: 4A1239Z Monitoring of Cardiac Output, Percutaneous Approach (ICD-10-PCS; 2023-12-19)
PROC: 0W9B30Z Drainage of Left Pleural Cavity with Drainage Device, Percutaneous Approach (ICD-10-PCS; 2023-12-19)
PROC: 06BQ4ZZ Excision of Left Saphenous Vein, Percutaneous Endoscopic Approach (ICD-10-PCS; 2023-12-29)
PROC: 02100Z9 Bypass Coronary Artery, One Artery from Left Internal Mammary, Open Approach (ICD-10-PCS; 2023-12-29 13:10)
PROC: 021209W Bypass Coronary Artery, Three Arteries from Aorta with Autologous Venous Tissue, Open Approach (ICD-10-PCS; 2023-12-29 13:10)
DX: I25.118 Atherosclerotic heart disease of native coronary artery with other forms of angina pectoris (principal); I21.4 Non-ST elevation (NSTEMI) myocardial infarction; I50.43 Acute on chronic combined systolic (congestive) and diastolic (congestive) heart failure; E87.0 Hyperosmolality and hypernatremia; I44.2 Atrioventricular block, complete; I24.9 Acute ischemic heart disease, unspecified; I11.0 Hypertensive heart disease with heart failure; E78.5 Hyperlipidemia, unspecified; I25.5 Ischemic cardiomyopathy; E11.65 Type 2 diabetes mellitus with hyperglycemia; D72.829 Elevated white blood cell count, unspecified; K59.00 Constipation, unspecified; E78.00 Pure hypercholesterolemia, unspecified; J98.4 Other disorders of lung; Z95.5 Presence of coronary angioplasty implant and graft; Z79.899 Other long term (current) drug therapy; Z72.0 Tobacco use; Z79.4 Long term (current) use of insulin; Z91.199 Patient's noncompliance with other medical treatment and regimen due to unspecified reason
CPT/HCPCS: 36415; 71045; 80048; 80053; 80061; 80076; 80305; 81001; 82140; 82306; 82330; 82435; 82550; 82803; 82947; 82948; 83036; 83605; 83735; 83880; 84100; 84132; 84145; 84295; 84484; 85018; 85025; 85027; 85347; 85378; 85610; 85730; 86850; 86900; 86901; 86923; 87641; 93005; 93306; 93312; 93325; 93458; 93880; 94002; 94150; A7048; C1760; C1894; G0378; J0171; J0282; J0583; J0612; J0690; J1644; J1650; J1815; J1940; J2001; J2250; J2270; J2405; J2440; J2704; J2720; J3010; J3475; J3480; J3490; J7030; J7040; J7120; Q9967; A4213; A4215; A4216; A4222; A4223; A4315; A4452; A4510; A4600; A4649; A6204; A6219; C1713; C1776